=== PATIENT | female | born 1970 | race African-American/Black ===

== ENCOUNTER 2019-01-17 17:53 | Emergency (ER) | payer BC, MEDICAID, OTHER ==
[~2019-01-17] VITALS: Ht 165.1 cm; Wt 99.0 kg
[2019-01-17 18:03] VITALS: BP 138/77
[2019-01-17] MEDS ORDERED: CYCLOBENZAPRINE 10 MG TABLET ONE (18:28)
[2019-01-17] MEDS ORDERED: OXYcodone/APAP 5/325MG TABLET ONE (18:29)
[2019-01-17] MEDS ORDERED: OXYcodone/APAP 5/325MG TABLET PO ONE (18:30)
[2019-01-17] MEDS ORDERED: CYCLOBENZAPRINE 10 MG TABLET PO ONE (18:30)
== END 2019-01-17 18:54 | disposition home or self-care (01) ==
LOC: ED 18:48
DX: S39.012A Strain of muscle, fascia and tendon of lower back, initial encounter (principal); X50.1XXA Overexertion from prolonged static or awkward postures, initial encounter; Y93.89 Activity, other specified; Y92.89 Other specified places as the place of occurrence of the external cause; Y99.8 Other external cause status
CPT/HCPCS: 99283